=== PATIENT | male | born 1955 | race Caucasian/White ===

== ENCOUNTER 2021-12-30 19:41 | Observation (INO) ==
[2021-12-30 20:28] LABS: Basophils % 0.3 %; Eosinophils # 0.1 K/mcL (0.0-0.6); Eosinophils % 1.4 %; Immature Granulocytes % 0.3 % (0-4); Lymphocytes # 1.5 K/mcL (0.6-4.6); Lymphocytes % 23.3 %; Mean Corpuscular HGB Conc 33.3 g/dL (31.6-35.5); Mean Corpuscular Hemoglobin 30.2 pg (28.0-33.3); Mean Corpuscular Volume 90.7 fL (83.0-100.0); Mean Platelet Volume 8.9 fL (9.4-12.4); Monocytes # 0.4 K/mcL (0.0-1.3); Monocytes % 6.1 %; Neutrophils # 4.4 K/mcL (1.6-8.9); Platelet Count 202 K/mcL (140-400); Red Cell Distribution Width 14.6 % (11.5-14.5); Segmented Neutrophils % 68.6 %; White Blood Count 6.4 K/mcL (4.3-11.1)
[2021-12-30] MEDS ORDERED: Ketorolac 30 MG/ML VIAL IVP ONE (21:16)
[2021-12-30] MEDS ORDERED: Prochlorperazine 10 MG/2 ML VIAL IVP ONE (21:17)
[2021-12-30 21:27] LABS: BUN/Creatinine Ratio 17 (6-26); Blood Urea Nitrogen 36 mg/dL (8-23); Carbon Dioxide 21 mEq/L (23-29); Chloride 105 mEq/L (98-107); Glucose 80 mg/dL (70-105); Osmolality,Calculated 285 (280-300); Potassium 4.6 mEq/L (3.5-5.1); Sodium 134 mEq/L (136-145); Troponin I < 0.03 ng/mL (< 0.04); eGFR For African Americans 37 (> 60); eGFR For Non-African Americans 31 (> 60)
[2021-12-30] MEDS ORDERED: *HR* Labetalol 20 MG/4 ML SYRINGE IVP ONE (22:27)
[2021-12-30] MEDS ORDERED: Aspirin 325 MG TABLET PO ONE (22:29)
[2021-12-30] MEDS ORDERED: Naloxone 0.4 MG/ML INJ IVP PRN (23:13)
[2021-12-30] MEDS ORDERED: Ondansetron 4 MG/2 ML VIAL IVP PRN (23:13)
[2021-12-31] MEDS: 0.9 % Sodium Chloride 1,000 ML IVC SCH ×3 (00:29→22:56)
[2021-12-31 04:42] LABS: Basophils % 0.5 %; Eosinophils # 0.1 K/mcL (0.0-0.6); Eosinophils % 3.3 %; Hematocrit 35.5 % (37.5-50.1); Hemoglobin 12.2 g/dL (12.9-16.9); Immature Granulocytes % 0.2 % (0-4); Lymphocytes # 1.7 K/mcL (0.6-4.6); Lymphocytes % 40.1 %; Mean Corpuscular HGB Conc 34.4 g/dL (31.6-35.5); Mean Corpuscular Hemoglobin 30.8 pg (28.0-33.3); Mean Corpuscular Volume 89.6 fL (83.0-100.0); Mean Platelet Volume 8.9 fL (9.4-12.4); Monocytes # 0.4 K/mcL (0.0-1.3); Monocytes % 8.3 %; Platelet Count 170 K/mcL (140-400); Red Blood Count 3.96 M/mcL (4.19-5.50); Red Cell Distribution Width 14.6 % (11.5-14.5); Segmented Neutrophils % 47.6 %; White Blood Count 4.2 K/mcL (4.3-11.1)
[2021-12-31 04:52] LABS: Prothrombin Time 11.2 Seconds (9.4-12.1)
[2021-12-31 04:58] LABS: Albumin 3.7 g/dL (3.5-5.7); Albumin/Globulin Ratio 1.8 (1.1-2.2); Bilirubin,Indirect 0.5 mg/dL (0.0-1.0); Bilirubin,Total 0.5 mg/dL (0.3-1.0); Calcium 8.4 mg/dL (8.6-10.3); Chol/HDL Ratio 4.7 (0-4.9); Globulin 2.1 g/dL (2.4-3.5); Magnesium 2.6 mg/dL (1.6-2.6); Phosphorous 4.4 mg/dL (2.7-4.5); Potassium 3.7 mEq/L (3.5-5.1); Total Protein 5.8 g/dL (6.4-8.9)
[2021-12-31 05:08] LABS: Estimated Average Glucose 120 mg/dl; Hemoglobin A1C 5.8 %
[2021-12-31 05:10] LABS: Thyroid Stimulating Hormone 3.375 mcIU/mL (0.340-5.600)
[2021-12-31] MEDS: *HR* Heparin 5,000 UNIT/ML VIAL SQ SCH ×3 (05:14→21:11)
[2021-12-31 05:59] LABS: Bilirubin,Urine Negative (Negative); Blood,Urine Negative (Negative); Clarity,Urine Clear (Clear); Color,Urine Light-Yellow (Yellow); Glucose,Urine (UA) Normal (Normal); Ketones,Urine Negative (Negative); Leukocyte Esterase,Urine Negative (Negative); Nitrite,Urine Negative (Negative); PH,Urine 5.5 pH Units (5.0-8.0); Protein,Urine Negative (Neg-Trace); Specific Gravity,Urine 1.015 (1.010-1.025); Urobilinogen,Urine Normal (Normal)
[2021-12-31 06:17] LABS: Amphetamine Screen,Urine Negative ng/mL (Cutoff=1000); Barbiturate Screen,Urine Negative ng/mL (Cutoff=200)
[2021-12-31 06:18] LABS: Benzodiazepines Screen,Urine Negative ng/mL (Cutoff=300); Cannabinoid Screen,Urine Negative ng/mL (Cutoff = 50); Cocaine Screen,Urine Negative ng/mL (Cutoff= 300); Opiate Screen,Urine Negative ng/mL (Cutoff=300); Phencyclidine Screen,Urine Negative ng/mL (Cutoff=25)
[2021-12-31] MEDS: Acetaminophen 325 MG TABLET PO PRN ×2 (06:57→19:49)
[2021-12-31] MEDS ORDERED: *HR* Enoxaparin 30 MG/0.3 ML SYRINGE SQ SCH (09:00)
[2021-12-31 11:04] LABS: Sodium, Urine 41.6 mEq/L
[2021-12-31] MEDS ORDERED: lisinopriL 5 MG TABLET PO SCH (13:00)
[2021-12-31] MEDS: hydrALAZINE 10 MG TABLET PO SCH (21:10)
[2022-01-01 02:21] LABS: Basophils % 0.4 %; Eosinophils # 0.2 K/mcL (0.0-0.6); Eosinophils % 4.3 %; Hematocrit 34.2 % (37.5-50.1); Hemoglobin 11.4 g/dL (12.9-16.9); Immature Granulocytes % 0.2 % (0-4); Lymphocytes # 2.1 K/mcL (0.6-4.6); Lymphocytes % 44.9 %; Mean Corpuscular HGB Conc 33.3 g/dL (31.6-35.5); Mean Platelet Volume 9.2 fL (9.4-12.4); Monocytes # 0.4 K/mcL (0.0-1.3); Monocytes % 7.7 %; Platelet Count 163 K/mcL (140-400); Red Cell Distribution Width 14.6 % (11.5-14.5); Segmented Neutrophils % 42.5 %; White Blood Count 4.7 K/mcL (4.3-11.1)
[2022-01-01 02:25] LABS: Calcium 8.2 mg/dL (8.6-10.3); Potassium 4.6 mEq/L (3.5-5.1)
[2022-01-01] MEDS: *HR* Heparin 5,000 UNIT/ML VIAL SQ SCH ×3 (06:00→22:21)
[2022-01-01] MEDS: hydrALAZINE 10 MG TABLET PO SCH (08:45)
[2022-01-01] MEDS: 0.9 % Sodium Chloride 1,000 ML IVC SCH (08:45)
[2022-01-01] MEDS: amLODIPine 5 MG TABLET PO SCH (13:06)
[2022-01-01] MEDS: hydrALAZINE 25 MG TABLET PO SCH ×2 (14:44→19:41)
[2022-01-01 15:01] LABS: Triiodothyronine (T3) Free 2.53 pg/mL (2.50-3.90)
[2022-01-01] MEDS ORDERED: hydrALAZINE 25 MG TABLET PO ONE ×2 (15:50→16:07)
[2022-01-01] MEDS: Spironolactone 25 MG TABLET PO SCH (17:57)
[2022-01-01] MEDS ORDERED: GI Cocktail 40 ML EACH PO ONE (19:50)
[2022-01-02] MEDS ORDERED: Acetaminophen/Butalbital/CaffeineTABLET PO PRN ×2 (02:17→20:35)
[2022-01-02] MEDS ORDERED: *HR* Labetalol 20 MG/4 ML SYRINGE IVP ONE (02:23)
[2022-01-02] MEDS: *HR* Heparin 5,000 UNIT/ML VIAL SQ SCH ×3 (05:52→20:56)
[2022-01-02] MEDS: amLODIPine 5 MG TABLET PO SCH (08:38)
[2022-01-02] MEDS: Spironolactone 25 MG TABLET PO SCH (08:38)
[2022-01-02] MEDS: hydrALAZINE 25 MG TABLET PO SCH ×3 (08:39→20:55)
[2022-01-02 09:45] LABS: Calcium 8.9 mg/dL (8.6-10.3); Potassium 4.4 mEq/L (3.5-5.1)
[2022-01-02 19:44] LABS: Metanephrine, Plasma 0.17 nmol/L (0.00-0.49)
[2022-01-02] MEDS ORDERED: cloNIDine HCL 0.1 MG TABLET PO ONE (20:35)
[2022-01-03 03:24] LABS: Basophils % 0.2 %; Eosinophils # 0.2 K/mcL (0.0-0.6); Eosinophils % 4.4 %; Hematocrit 32.2 % (37.5-50.1); Hemoglobin 10.8 g/dL (12.9-16.9); Immature Granulocytes % 0.2 % (0-4); Lymphocytes # 2.1 K/mcL (0.6-4.6); Lymphocytes % 40.2 %; Mean Corpuscular HGB Conc 33.5 g/dL (31.6-35.5); Mean Corpuscular Hemoglobin 30.3 pg (28.0-33.3); Mean Corpuscular Volume 90.4 fL (83.0-100.0); Mean Platelet Volume 9.3 fL (9.4-12.4); Monocytes # 0.3 K/mcL (0.0-1.3); Monocytes % 5.8 %; Neutrophils # 2.6 K/mcL (1.6-8.9); Platelet Count 170 K/mcL (140-400); Red Blood Count 3.56 M/mcL (4.19-5.50); Red Cell Distribution Width 14.8 % (11.5-14.5); Segmented Neutrophils % 49.2 %; White Blood Count 5.2 K/mcL (4.3-11.1)
[2022-01-03 03:45] LABS: Calcium 8.4 mg/dL (8.6-10.3)
[2022-01-03] MEDS: *HR* Heparin 5,000 UNIT/ML VIAL SQ SCH ×2 (05:18→15:55)
[2022-01-03] MEDS ORDERED: amLODIPine 5 MG TABLET PO SCH (09:00)
[2022-01-03] MEDS ORDERED: Spironolactone 12.5 MG TABLET PO SCH (09:00)
[2022-01-03 09:53] VITALS: O2SAT 97
[2022-01-03] MEDS: hydrALAZINE 25 MG TABLET PO SCH ×2 (10:03→15:56)
[2022-01-03] MEDS ORDERED: cloNIDine HCL 0.1 MG TABLET PO PRN (11:46)
[2022-01-03 12:04] VITALS: PULSE 66; TEMP 97.1
[2022-01-03 12:15] LABS: Calcium 8.9 mg/dL (8.6-10.3); Potassium 5.3 mEq/L (3.5-5.1)
[2022-01-03 13:43] VITALS: BP 146/67
[2022-01-03] MEDS ORDERED: SODIUM ZIRCONIUM CYCLOSILICATE 5 GM POWD.PACK PO SCH (17:00)
[2022-01-04 10:58] LABS: Urine Collection Volume NOT PROVIDED mL
== END 2022-01-03 16:52 | disposition home or self-care (01) ==
LOC: 2NENU 19:41 → EMEROOARM 19:41 → SUATTDRO 22:55 → 2NENU 12-31 00:07
PROVIDERS: ADMIT Internal Medicine; ATTEND General Practice